=== PATIENT | female | born 1975 | race Caucasian/White ===

== ENCOUNTER 2017-06-06 18:22 | Emergency (ER) | payer MEDICAID ==
[~2017-06-06] VITALS: Ht 157.5 cm; Wt 56.0 kg
[~2017-06-06 18:22] MED LIST: IBUP800T25
[2017-06-06 18:25] VITALS: Ht 157.5 cm; Wt 56.0 kg
[2017-06-06] MEDS ORDERED: ACETAMINOPHEN 500 MG TAB PO STA (20:09)
--- NOTE | 2017-06-06 20:37 | ERD ---
ER Documentation Chief Complaint Date/Time DATE: 06/06/17 TIME: 20:34 Chief Complaint Sent from MD for eval Vag bleed and HPI This is a 42-year-old female who presents the emergency department today complaining of vaginal bleeding that started today. Patient states she is approximately 8 weeks . States she went to her primary care clinic and was told to come here for further evaluation. Denies any dysuria, fevers or chills. States she does have some crampy lower abdominal pain but has not taken any medication for the pain. ROS All systems reviewed and are negative except as per history of present illness. Medications Home Meds Active Scripts Acetaminophen* (Tylophen*) 500 Mg Capsule, 1 CAP PO Q6H Y for PAIN AND OR ELEVATED TEMP, #30 CAP Prov:MORENITA PA PA-C 06/06/17 Reported Medications Ibuprofen* (Motrin*) 800 Mg Tab 03/10/10 Allergies Allergies: Coded Allergies: No Known Drug Allergy (Verified Allergy, Unknown, 12/15/13) PMhx/Soc History of Surgery: Yes () Anesthesia Reaction: No Hx Neurological Disorder: No Hx Respiratory Disorders: No Hx Cardiac Disorders: No Hx Psychiatric Problems: No Hx Miscellaneous Medical Probl: No Hx Alcohol Use: No Hx Substance Use: No Hx Tobacco Use: No Smoking Status: Never smoker Physical Exam Vitals Vital Signs Date Time Temp Pulse Resp B/P Pulse Ox O2 Delivery O2 Flow Rate FiO2 06/06/17 18:25 99.0 68 20 107/51 99 Physical Exam Const: NAD Head: Atraumatic Eyes: Normal Conjunctiva ENT: Normal External Ears, Nose and Mouth. Neck: Full range of motion..~ No meningismus. Resp: Clear to auscultation bilaterally Cardio: Regular rate and rhythm, no murmurs Abd: Soft, lower pelvic tenderness, non distended. Normal bowel sounds no tenderness to McBurney's. Skin: No petechiae or rashes Back: No midline or flank tenderness Ext: No cyanosis, or edema Neur: Awake and alert Psych: Normal Mood and Affect Result Diagram: 06/06/172029 Results 24 hrs Laboratory Tests Test 06/06/17 20:15 06/06/17 20:30 Urine Color RED Urine Clarity SLIGHTLY CLOUDY Urine pH 7.0 Urine Specific [place] 1.010 Urine Ketones NEGATIVEmg/dL Urine Nitrite NEGATIVEmg/dL Urine Bilirubin NEGATIVEmg/dL Urine Urobilinogen NEGATIVEmg/dL Urine Leukocyte Esterase NEGATIVELeu/ul Urine Microscopic RBC > 182/HPF Urine Microscopic WBC 176/HPF Urine Squamous Epithelial Cells FEW/HPF Urine Yeast (Budding) FEW/HPF Urine Hemoglobin 3+mg/dL Urine Glucose NEGATIVEmg/dL Urine Total Protein 1+mg/dl White Blood Count 4.610^3/ul Red Blood Count 4.1210^6/ul Hemoglobin 12.9g/dl Hematocrit 37.7% Mean Corpuscular Volume 91.5fl Mean Corpuscular Hemoglobin 31.3pg Mean Corpuscular Hemoglobin Concent 34.2g/dl Red Cell Distribution Width 12.9% Platelet Count 10169^3/UL Mean Platelet Volume 9.9fl Neutrophils % 43.1% Lymphocytes % 47.2% Monocytes % 7.8% Eosinophils % 1.1% Basophils % 0.4% Nucleated Red Blood Cells % 0.0/100WBC Neutrophils # 2.010^3/ul Lymphocytes # 2.210^3/ul Monocytes # 0.410^3/ul Eosinophils # 0.110^3/ul Basophils # 0.010^3/ul Nucleated Red Blood Cells # 0.010^3/ul Beta HCG, Quantitative 00951.0mIU/ml Current Medications Medications (Trade) Dose Ordered Sig/Eboni Route PRN Reason Start Time Stop Time Status Last Admin Dose Admin Acetaminophen (Tylenol Tab) 500 mg ONCE STAT PO 06/06/17 20:09 06/06/17 20:11 DC 06/06/17 20:31 DIAGNOSTIC IMAGING REPORT Patient: NORRIS CARDONA : 1975 Age: 42 Sex: F MR #: [id number] DOS: 06/06/172008 Ordering MD: MORENITA PA PA-C Location: [facility] Room/Bed: PROCEDURE: FIRST TRIMESTER OBSTETRICAL ULTRASOUND: CLINICAL INDICATION: 42 years of age, female. Vaginal bleeding. History of two C-sections. COMPARISON: None available. TECHNIQUE: Real-time sonographic images of the pelvis were obtained transabdominally and transvaginally utilizing melissa scale, color, and Doppler imaging. FINDINGS: LMP March 31, 2017 EGA by dates: 9 weeks 4 days MICHELLE by dates: January 05, 2018 Beta HCG 14,894 Uterus: Anteverted . Endometrium is thickened and measures 2 cm. Gestational sac: There is a 2 x 2.1 cm sac-like structure eccentrically situated in the anterior lower uterine segment without evidence of a yolk sac or embryo. Estimated gestational age by mean sac diameter would be approximately 7 weeks. Cervix: Trace fluid in the endocervical canal. Right ovary: Not visualized. Evaluation is limited due to bowel gas. An adnexal mass is not visualized. Left ovary: Not visualized. Evaluation is limited due to bowel gas. An adnexal mass is not visualized. Bladder: Visualized bladder is normal. Other: Trace free pelvic fluid IMPRESSION: 1. Sac-like structure eccentrically situated in the anterior lower uterine segment without evidence of a yolk sac or embryo may represent an intrauterine that is suspicious for failure or a scar ectopic within a section scar. Without visualizing a yolk sac or embryo, a definitive diagnosis of gestational sac cannot be made and a pseudogestational sac cannot be excluded but is less likely. Evaluation of the adnexa is limited due to bowel gas. Recommend gynecology consultation. The patient may benefit from repeat ultrasound specifically to evaluate the section scar. If this does represent an intrauterine gestational sac, it is suspicious for but not diagnostic of failure and correlation with serial beta HCG and follow-up ultrasound in 7-10 days would be recommended. 2. Trace free pelvic fluid. Findings were discussed with Morenita AVILES by Dr. Fatuma Hernandez on June 06, 2017 at 10:15 p.m.. RPTAT: HCTS Physician Brianna Date Time Electronically viewed and signed by Cristina Hernandez Physician on 06/06/2017 22: 21 CS/ CC: MORENITA PA PA-C Procedures/MDM This is a A1 42-year-old female who presents to the emergency department today complaining of vaginal bleeding noted today. Patient states she is approximately 8 weeks . Patient was sent here by her primary care clinic [facility] for further evaluation. Given this I did obtain a complete OB workup. Laboratory work no elevated white blood cell count. She is not anemic. Platelets are within normal limits. UA shows shows negative leukocyte esterase negative nitrites. Beta quant hCG 23687.0 Rh status A+ Ultrasound shows a sac like structure situated in the anterior lower uterine segment without evidence of a yolk sac or embryo that may represent an intrauterine that is suspicious for failure or a scar ectopic within the section scar. Without visualizing a yolk sac or embryo definitive diagnosis of gestational sac cannot be made in a pseudo -gestational sac cannot be excluded but is less likely. Evaluation of the adnexa is limited due to bowel gas however an adnexal mass is not visualized. There is trace free pelvic fluid. Sound is a sac like structure eccentrically situated in the anterior lower uterine segment without evidence of a yolk sac or embryo may represent an intrauterine that is suspicious for failure or a scar ectopic within a section scar. I placed a call to the laborist weatherization and housing inspector, Dr. Segura who recommended the patient have a repeat beta quant in 48 hours and a repeat ultrasound in 1 week. I have explained this to the patient. Patient was given Tylenol here in the emergency department and pain improved. She will be given a prescription for Tylenol for home. Patient symptoms at this time is consistent with vaginal bleeding in early . Other differentials to consider early normal versus early failed Patient is afebrile and otherwise well-appearing. Suspicion for ovarian torsion , tubo-ovarian abscess. At this time I cannot rule out ectopic . I have explained that to the patient. I have explained the results to the patient. I have explained to the patient that they need to follow-up in 48 hours for a repeat beta quant a repeat ultrasound in 1 week.. At this time the patient is stable for discharge and outpatient management. Patient should follow up with their PCP in the next 1-2 days. They may return to the emergency department sooner for any persistent or worsening of symptoms. Patient understood and agreed with the plan. Departure Diagnosis: Primary Impression: Vaginal bleeding in patient at less than 20 weeks gestation Condition: MORENITA William PA-C Jun 06, 2017 20:37
[2017-06-06 20:51] LABS: BASOPHILS % 0.4 % (0.0-2.0); EOSINOPHILS # 0.1 10^3/ul (0.0-0.5); EOSINOPHILS % 1.1 % (0.0-7.0); HEMATOCRIT 37.7 % (37.0-47.0); HEMOGLOBIN 12.9 g/dl (12.0-16.0); LYMPHOCYTES # 2.2 10^3/ul (0.8-2.9); LYMPHOCYTES % 47.2 % (15.0-51.0); MEAN CORPUSCULAR HEMOGLOBIN 31.3 pg (29.0-33.0); MEAN CORPUSCULAR HGB CONC 34.2 g/dl (32.0-37.0); MEAN CORPUSCULAR VOLUME 91.5 fl (82.0-101.0); MEAN PLATELET VOLUME 9.9 fl (7.4-10.4); MONOCYTE # 0.4 10^3/ul (0.3-0.9); MONOCYTES % 7.8 % (0.0-11.0); NEUTROPHILS % 43.1 % (39.0-77.0); PLATELET COUNT 166 10^3/UL (140-415); RED BLOOD COUNT 4.12 10^6/ul (4.20-5.40); RED CELL DISTRIBUTION WIDTH 12.9 % (11.5-14.5); WHITE BLOOD COUNT 4.6 10^3/ul (4.8-10.8)
[2017-06-06 21:01] LABS: ADD UMIC YES; UR ASCORBIC ACID NEGATIVE (NEGATIVE); UR BILIRUBIN (Dip) NEGATIVE (NEGATIVE); UR BLOOD (Dip) 3+ mg/dL (NEGATIVE); UR BUDDING YEAST FEW /HPF (NONE SEEN); UR CLARITY SLIGHTLY CLOUDY (CLEAR); UR COLOR RED (YELLOW); UR GLUCOSE (Dip) NEGATIVE (NEGATIVE); UR KETONES (Dip) NEGATIVE (NEGATIVE); UR LEUKOCYTE ESTERASE (Dip) NEGATIVE Leu/ul (NEGATIVE); UR NITRITE (Dip) NEGATIVE (NEGATIVE); UR RBC > 182 /HPF (0-5); UR SQUAMOUS EPITHELIAL CELL FEW /HPF (FEW); UR TOTAL PROTEIN (Dip) 1+ mg/dl (NEGATIVE); UR UROBILINOGEN (Dip) NEGATIVE (NEGATIVE)
--- NOTE | 2017-06-06 22:21 | RADRPT ---
PROCEDURE: FIRST TRIMESTER OBSTETRICAL ULTRASOUND: CLINICAL INDICATION: 42 years of age, female. Vaginal bleeding. History of two C-sections. COMPARISON: None available. TECHNIQUE: Real-time sonographic images of the pelvis were obtained transabdominally and transvagina lly utilizing melissa scale, color, and Doppler imaging. FINDINGS: LMP March 31, 2017 EGA by dates: 9 weeks 4 days MICHELLE by dates: January 05, 2018 Beta HCG 14,894 Uterus: Anteverted . Endometrium is thickened and measures 2 cm. Gestational sac: There is a 2 x 2.1 cm sac-like structure eccentrically situated in the anterior low er uterine segment without evidence of a yolk sac or embryo. Estimated gestational age by mean sac d iameter would be approximately 7 weeks. Cervix: Trace fluid in the endocervical canal. Right ovary: Not visualized. Evaluation is limited due to bowel gas. An adnexal mass is not visualized. Left ovary: Not visualized. Evaluation is limited due to bowel gas. An adnexal mass is not visualized. Bladder: Visualized bladder is normal. Other: Trace free pelvic fluid IMPRESSION: 1. Sac-like structure eccentrically situated in the anterior lower uterine segment without evidence of a yolk sac or embryo may represent an intrauterine that is suspicious for fa ilure or a scar ectopic within a section scar. Without visualizing a yolk sac or embryo, a definitive diagnosis of gestational sac cannot be made and a pseudogestational sac cannot be excluded but is less likely. Evaluation of the adnexa is limited due to bowel gas. Recommend animal daycare provider ecology consultation. The patient may benefit from repeat ultrasound specifically to evaluate the ce sarean section scar. If this does represent an intrauterine gestational sac, it is suspicious for bu t not diagnostic of failure and correlation with serial beta HCG and follow-up ultrasound in 7-10 days would be recommended. 2. Trace free pelvic fluid. Findings were discussed with Morenita AVILES by Dr. Fatuma Hernandez on June 06, 2017 at 10:15 p .m.. RPTAT: HCTS Physician Brianna Date Time Electronically viewed and signed by Physician Brianna on 06/06/2017 22:21 CS/
[2017-06-06] MEDS ORDERED: ACET500C5 PO (22:54)
== END 2017-06-06 23:20 | disposition home or self-care (01) ==
LOC: FTE 18:22
DX: O20.9 Hemorrhage in early pregnancy, unspecified (principal); Z3A.01 Less than 8 weeks gestation of pregnancy
CPT/HCPCS: 36415; 76801; 76817; 81001; 84702; 85025; 86900; 86901; Z7502; Z7610

== ENCOUNTER 2017-06-21 19:48 | Emergency (ER) | payer MEDICAID ==
[~2017-06-21] VITALS: Ht 160 cm; Wt 56.0 kg
[~2017-06-21 19:48] MED LIST changes: +ACET500C5 PO
[2017-06-21 19:51] VITALS: Ht 160 cm; Wt 56.0 kg
--- NOTE | 2017-06-21 21:14 | ERD ---
ER Documentation Chief Complaint Date/Time DATE: 06/21/17 TIME: 21:12 Chief Complaint 12 weeks , vag bleeding today HPI 42-year-old female who is A1, last menstrual period in March 30 presents with vaginal bleeding for the past 2 weeks. She states it is like a menses, she has had bleeding every day with some cramping pain. Patient was evaluated June 06 where she had a ultrasound that shows what appears to be most likely impending miscarriage. She was told that she may need a D&C by Dr. Florian. ROS All systems reviewed and are negative except as per history of present illness. Medications Home Meds Active Scripts Acetaminophen* (Tylophen*) 500 Mg Capsule, 1 CAP PO Q6H Y for PAIN AND OR ELEVATED TEMP, #30 CAP Prov:AKILA PA PA-C 06/06/17 Reported Medications Ibuprofen* (Motrin*) 800 Mg Tab 03/10/10 Allergies Allergies: Coded Allergies: No Known Drug Allergy (Verified Allergy, Unknown, 12/15/13) PMhx/Soc History of Surgery: Yes () Anesthesia Reaction: No Hx Neurological Disorder: No Hx Respiratory Disorders: No Hx Cardiac Disorders: No Hx Psychiatric Problems: No Hx Miscellaneous Medical Probl: No Hx Alcohol Use: No Hx Substance Use: No Hx Tobacco Use: No Smoking Status: Never smoker Physical Exam Vitals Vital Signs Date Time Temp Pulse Resp B/P Pulse Ox O2 Delivery O2 Flow Rate FiO2 06/21/17 23:33 64 16 110/62 98 Room Air 06/21/17 19:51 96.8 68 20 96/55 96 Physical Exam General: Well-developed, well-nourished. The patient appears in no acute distress. HEENT: Head is normocephalic, atraumatic. No scleral icterus. Neck: Supple. Nontender. Lungs: Clear to auscultation. Normal air movement. Heart: Regular rate and rhythm. S1 and S2 are normal. No murmurs, gallops, or rubs. Abdomen: Soft, nontender, nondistended. Bowel sounds are normoactive. Extremities: No clubbing or cyanosis. Normal pulses. Moving extremities x 4. No weakness. Neurologic: Alert and oriented 3. No focal deficits. Skin: Normal turgor. No rash or lesions. Result Diagram: 06/21/172134 Results 24 hrs Laboratory Tests Test 06/21/17 21:35 06/21/17 21:39 White Blood Count 6.110^3/ul Red Blood Count 4.1210^6/ul Hemoglobin 12.8g/dl Hematocrit 37.6% Mean Corpuscular Volume 91.3fl Mean Corpuscular Hemoglobin 31.1pg Mean Corpuscular Hemoglobin Concent 34.0g/dl Red Cell Distribution Width 12.7% Platelet Count 70979^3/UL Mean Platelet Volume 9.4fl Neutrophils % 47.6% Lymphocytes % 43.5% Monocytes % 6.7% Eosinophils % 1.5% Basophils % 0.5% Nucleated Red Blood Cells % 0.0/100WBC Neutrophils # 2.910^3/ul Lymphocytes # 2.710^3/ul Monocytes # 0.410^3/ul Eosinophils # 0.110^3/ul Basophils # 0.010^3/ul Nucleated Red Blood Cells # 0.010^3/ul Beta HCG, Quantitative 2263.0mIU/ml Urine Color YELLOW Urine Clarity CLOUDY Urine pH 7.0 Urine Specific [place] 1.024 Urine Ketones NEGATIVEmg/dL Urine Nitrite NEGATIVEmg/dL Urine Bilirubin NEGATIVEmg/dL Urine Urobilinogen 1+mg/dL Urine Leukocyte Esterase NEGATIVELeu/ul Urine Microscopic RBC 4/HPF Urine Microscopic WBC 0/HPF Urine Squamous Epithelial Cells FEW/HPF Urine Amorphous Crystals FEW/HPF Urine Mucus MODERATE/HPF Urine Hemoglobin 1+mg/dL Urine Glucose NEGATIVEmg/dL Urine Total Protein NEGATIVEmg/dl Radiology Main Line: [phone] DIAGNOSTIC IMAGING REPORT Patient: NORRIS ALCAZAR : 1975 Age: 42 Sex: F MR #: [id number] DOS: 06/21/172053 Ordering MD: CAIT GEORGES PA-C Location: [facility] Room/Bed: PROCEDURE: US Pelvis/OB. CLINICAL INDICATION: vaginal bleeding TECHNIQUE: Multiple sonographic images of the pelvis were obtained utilizing a transabdominal and endovaginal technique. The images were reviewed on a PACS workstation. COMPARISON: US PELVIS 06/06/2017 FINDINGS: There is an irregular appearing cystic structure within the endometrium measuring 1.8 cm which would correspond to a calculated gestational age of 6 weeks and 4 days. No pole is yet visualized. There is a possible yolk sac seen. The right ovary measures 2.5 x 2.7 cm. There is a 2.1 cm simple cyst in the right ovary. The left ovary measures 2.5 x 1.4 x 1.6 cm. There is a small amount of free fluid in the pelvis. RPTAT: AA IMPRESSION: Irregular appearing cystic structure within the uterus, corresponding to a possible 6 weeks and 4 days gestation. No pole is visualized. The findings likely represent a nonviable . Close followup ultrasound and hCG is recommended. .Marino Huertas MD, MD Date Time Electronically viewed and signed by .Marino Huertas MD, on 06/21/2017 22: 31 .S/ CC: CAIT GEORGES PA-C Procedures/MDM ED course: The EMR was reviewed, June 06, 2017 beta quantitative was 14,894, patient' s type and Rh was A+. MDM: 42-year-old female presents with a missed , she continues to have vaginal bleeding after having a pelvic ultrasound done twice that does not show evidence of a viable . The ultrasound today shows a cystic-like structure seen within the uterus, no evidence of heart tones. Her beta quant is also decreased from over 14,000 to a little over 2000 today. Patient' s primary OB is Dr. Florian. I Spoke with Dr. Webb who had seen the patient earlier today, and told her to go to emergency department if he feels like the bleeding is getting worse. After discussing the findings patient does not show any signs of hemodynamic instability, infection or warrants emergent dilatation and curettage, suspicion for ectopic is low. She will be given copies of everything that was done today, she was instructed to call the office to make an appointment to see Dr. Florian to schedule an outpatient D&C. Departure Diagnosis: Primary Impression: Missed Condition: CAIT Burrell PA-C Jun 21, 2017 21:14
[2017-06-21 21:50] LABS: BASOPHILS % 0.5 % (0.0-2.0); EOSINOPHILS # 0.1 10^3/ul (0.0-0.5); EOSINOPHILS % 1.5 % (0.0-7.0); HEMATOCRIT 37.6 % (37.0-47.0); HEMOGLOBIN 12.8 g/dl (12.0-16.0); LYMPHOCYTES # 2.7 10^3/ul (0.8-2.9); LYMPHOCYTES % 43.5 % (15.0-51.0); MEAN CORPUSCULAR HEMOGLOBIN 31.1 pg (29.0-33.0); MEAN CORPUSCULAR VOLUME 91.3 fl (82.0-101.0); MEAN PLATELET VOLUME 9.4 fl (7.4-10.4); MONOCYTE # 0.4 10^3/ul (0.3-0.9); MONOCYTES % 6.7 % (0.0-11.0); NEUTROPHIL # 2.9 10^3/ul (1.6-7.5); NEUTROPHILS % 47.6 % (39.0-77.0); PLATELET COUNT 193 10^3/UL (140-415); RED BLOOD COUNT 4.12 10^6/ul (4.20-5.40); RED CELL DISTRIBUTION WIDTH 12.7 % (11.5-14.5); WHITE BLOOD COUNT 6.1 10^3/ul (4.8-10.8)
[2017-06-21 21:59] LABS: ADD UMIC YES; UR AMORPHOUS CRYSTAL FEW /HPF (NONE SEEN); UR ASCORBIC ACID NEGATIVE (NEGATIVE); UR BILIRUBIN (Dip) NEGATIVE (NEGATIVE); UR BLOOD (Dip) 1+ mg/dL (NEGATIVE); UR CLARITY CLOUDY (CLEAR); UR COLOR YELLOW (YELLOW); UR GLUCOSE (Dip) NEGATIVE (NEGATIVE); UR KETONES (Dip) NEGATIVE (NEGATIVE); UR LEUKOCYTE ESTERASE (Dip) NEGATIVE Leu/ul (NEGATIVE); UR MUCUS MODERATE /HPF (NONE SEEN); UR NITRITE (Dip) NEGATIVE (NEGATIVE); UR RBC 4 /HPF (0-5); UR SPECIFIC GRAVITY (Dip) 1.024 (1.003-1.030); UR SQUAMOUS EPITHELIAL CELL FEW /HPF (FEW); UR TOTAL PROTEIN (Dip) NEGATIVE (NEGATIVE); UR UROBILINOGEN (Dip) 1+ mg/dL (NEGATIVE)
--- NOTE | 2017-06-21 22:32 | RADRPT ---
PROCEDURE: US Pelvis/OB. CLINICAL INDICATION: vaginal bleeding TECHNIQUE: Multiple sonographic images of the pelvis were obtained utilizing a transabdominal and endovaginal technique. The images were reviewed on a PACS workstation. COMPARISON: US PELVIS 06/06/2017 FINDINGS: There is an irregular appearing cystic structure within the endometrium measuring 1.8 cm which would correspond to a calculated gestational age of 6 weeks and 4 days. No pole is yet visualized. There is a possible yolk sac seen. The right ovary measures 2.5 x 2.7 cm. There is a 2.1 cm simple cyst in the right ovary. The left ovary measures 2.5 x 1.4 x 1.6 cm. There is a small amount of free fluid in the pelvis. RPTAT: AA IMPRESSION: Irregular appearing cystic structure within the uterus, corresponding to a possible 6 weeks and 4 da ys gestation. No pole is visualized. The findings likely represent a nonviable . Close followup ultrasound and hCG is recommended. .Marino Huertas MD, MD Date Time Electronically viewed and signed by .Marino Huertas MD, MD on 06/21/2017 22:31 .S/
[2017-06-21 23:33] VITALS: BP 110/62; PULSE 64; RESP 16
== END 2017-06-21 23:34 | disposition home or self-care (01) ==
LOC: FTE 19:48
DX: O02.1 Missed abortion (principal)
CPT/HCPCS: 36415; 76801; 76817; 81001; 84702; 85025; 86900; 86901; Z7502